=== PATIENT | male | born 1950 | race Caucasian/White ===

== ENCOUNTER 2025-06-27 19:12 | Emergency (ER) | payer OTHER, MEDICARE ==
[~2025-06-27] VITALS: Ht 175.3 cm; Wt 93.0 kg
[2025-06-27] MEDS ORDERED: IBUPROFEN 800 MG TAB PO ONE (20:45)
[2025-06-27 22:16] VITALS: BP 162/75
== END 2025-06-27 22:17 | disposition home or self-care (01) ==
LOC: ED 19:12
DX: S46.811A Strain of other muscles, fascia and tendons at shoulder and upper arm level, right arm, initial encounter (principal); S90.01XA Contusion of right ankle, initial encounter; S50.01XA Contusion of right elbow, initial encounter; S40.811A Abrasion of right upper arm, initial encounter; S80.211A Abrasion, right knee, initial encounter; S80.811A Abrasion, right lower leg, initial encounter; V20.49XA Other motorcycle driver injured in collision with pedestrian or animal in traffic accident, initial encounter
CPT/HCPCS: 71045; 73030; 73080; 73610; 99284-25; A9270